=== PATIENT | male | born 1960 | race Caucasian/White ===

== ENCOUNTER 2018-07-01 12:30 | Emergency (ER) | payer OTHER ==
[~2018-07-01] VITALS: Ht 175.3 cm; Wt 72.6 kg
[2018-07-01 13:40] VITALS: BP 120/79
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
[2018-07-01] MEDS ORDERED: HYDROcodone/APAP 5/325MG 1 TAB TABLET PO ONE (14:00)
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
--- NOTE | 2018-07-01 14:32 | RAD ---
CT HEAD AND MAXILLOFACIAL WO Indication: Fall Technique: Noncontrast CT imaging was performed of the head and maxillofacial region, multiplanar reconstruction images submitted. One or more of the following individualized dose reduction techniques were utilized for this examination: 1. Automated exposure control 2. Adjustment of the mA and/or kV according to patient size 3. Use of iterative reconstruction technique. Comparison: None Findings: Head: No acute intracranial hemorrhage is identified. There is no intra-axial mass effect, midline shift, extra axial fluid collection. Ventricles, sulci, cisterns are within normal limits in size and configuration. Visualized paranasal sinuses and mastoid air cells are aerated. Maxillofacial CT: There are no significant air-fluid levels in the paranasal sinuses. There is what likely represents a mucous retention cyst or polyp of the left maxillary sinus more posteriorly about 1.6 cm in size, internal density measurements of 56 Hounsfield units. No acute maxillofacial fracture is identified. There is multilevel facet degenerative change of the visualized cervical spine. IMPRESSION: 1. No acute intracranial abnormality is identified. 2. No acute maxillofacial fracture is identified. Electronically signed by: Prince Phipps MD (07/01/2018 2:29 PM) [id number]
[2018-07-01] MEDS ORDERED: IBUPROFEN 400 MG TABLET. PO ONE (14:45)
== END 2018-07-01 14:46 | disposition home or self-care (01) ==
LOC: ER 12:30
DX: S09.8XXA Other specified injuries of head, initial encounter (principal); R68.84 Jaw pain; W22.12XA Striking against or struck by front passenger side automobile airbag, initial encounter; Y93.89 Activity, other specified; Y92.89 Other specified places as the place of occurrence of the external cause; Y99.8 Other external cause status
CPT/HCPCS: 70450; 70486; 71045; 99284